=== PATIENT | female | born 1985 | race Caucasian/White ===

== ENCOUNTER 2017-02-04 09:20 | Outpatient (CLI) | payer MEDICAID ==
--- NOTE | 2017-02-04 10:09 | RADIOLOGY REPORT PS360 ---
CT HEAD W/O CONTRAST HISTORY: HEADACHE ORDERING PHYSICIAN: AMARI LAU PATIENT AGE: 32 years COMPARISON: None TECHNIQUE: Axial images obtained without contrast. Brain and bone windows reviewed. FINDINGS: No midline shift, mass effect, intracranial hemorrhage, hydrocephalus, or extra-axial fluid collection is evident. The calvarium has an unremarkable appearance. No mastoid effusion. The visualized paranasal sinuses are unremarkable. IMPRESSION: Negative CT head without contrast. No acute finding.
== END 2017-02-04 11:38 ==
LOC: ACC 09:20 → RAD 09:20
DX: R51 Headache (principal); I26.99 Other pulmonary embolism without acute cor pulmonale; Z79.01 Long term (current) use of anticoagulants; Z51.81 Encounter for therapeutic drug level monitoring
CPT/HCPCS: G0463

== ENCOUNTER 2017-04-23 08:58 | Emergency (ER) | payer MEDICAID ==
[~2017-04-23] VITALS: Ht 167.6 cm; Wt 90.7 kg
[2017-04-23] MEDS ORDERED: WARFARIN SOD5 M1 PO (09:06)
[2017-04-23] MEDS ORDERED: METOPROLOL SUCC50 M4 PO (09:06)
--- NOTE | 2017-04-23 09:08 | Urgent Treatment Center Report ---
History of Present Issue Date/Time Seen by Provider 04/23/17 0907 Visit Reason Pt arrived:Walked Presenting Problem:PT STATES PAIN TO LEFT SIDE THAT BEGAN LAST NIGHT A DULL PAIN. STATES PAIN HAS GOTTEN WORSE AND SIDE IS SENSITIVE. Location if Accident: Onset of symptoms date/time:04/22/17/ or onset unknown for:MEDICAL HX UNKNOWN Have you (or family members/close friends) recently traveled outside the [place]? N If Yes, where/when: Have you had exposure to infectious disease within the past month? TB? Other? Specify: c/o left lower abdominal pain. Started mild last night. Initially thought ovarian cyst and planned to call OBGYN in the morning. However, pain has progressed and now severe. "I don't think I can wait to get in to see them". Hx of ovarian cyst "but pretty sure they are always on my right". Pt hoping UTI "but never had a UTI hurt this bad and I have no other symptoms". Pain currently 6-7/10, constant, sharp, worse with sitting or laying, "took my breath away hitting a speed bump on the way here". Most comfortable standing. Hasn't taken or tried anything for symptoms. Pt is on coumadin for hx of PEs. Last INR 3 weeks ago. Reports "pretty leveled out" but not sure of number. Was due to repeated in 2 weeks but hasn't. Spoke to coumadin clinic yesterday and plans to go this week. Nausea with vomiting 2-3 days ago. Resolved after several hours. Contributed it to kids bringing something home from school. Denies N/V/D currently. No fever, dysuria, back pain. LMP 2 weeks ago. Hx of normal menstrual cycles. Denies any possibility of . Source patient Exam Limitations clinical condition (pain limited abdominal exam) ALLERGIES Coded Allergies: No Known Allergies (02/05/17) Home Medications Reported Medications Warfarin Sodium 5 MG PO DAILY #30 Metoprolol Succinate (Metoprolol Succinate XL) 50 MG PO DAILY #30 History Medical History General Angina: No [place]: No Hypertension? No Hyperlipidemia? No CHF? No COPD? No Asthma? No CVA? No Seizures? No Diabetes? No GB Disease: No MRSA? No TB? No Cancer? 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 denies: abnormal vaginal bleeding, vaginal discharge, frequency, hesitancy, hematuria. Musculoskeletal see HPI Skin denies lesions, denies lumps, denies rash Psychiatric/Neurological denies headache Physical Exam Vital Signs Vital Signs Date Time Temp Pulse Resp B/P Pulse O2 O2 Flow FiO2 Ox Delivery Rate 04/23 904 97.6 113 20 118/82 99 General Appearance mild distress, standing up, leaning against exam table Respiratory Status No: respiratory distress. Cardiovascular regular rate/rhythm, no peripheral edema, no murmur Gastrointestinal normal bowel sounds, soft, no organomegaly, no pulsatile mass, no guarding, no rebound, tenderness (LLQ) Back no CVA tenderness, gait abnormality (slow, guarded movement) Neurologic alert, oriented x 3 Mental status normal mood/affect Skin normal color, warm/dry Medical Decision Making LABS/Meds/Orders Pt receiving controlled substance in ED? No Results/Orders Laboratory Tests 04/23/17 0907: Urine Color YELLOW, Urine Appearance Clear, Urine pH 6.5, Ur Specific [place] 1.010, Urine Protein NEGATIVE, Urine Ketones NEGATIVE, Urine Blood NEGATIVE, Urine Nitrate NEGATIVE, Urine Bilirubin NEGATIVE, Urine Urobilinogen 0.2, Ur Leukocyte Esterase NEGATIVE, Urine Glucose NEGATIVE Orders Procedure Date/time Status [facility] URINE DIPSTICK 04/23 907 Complete Departure Departure Time of Disposition 918 Disposition Still a Patient Clinical Impression Primary Impression: Abdominal pain, left lower quadrant Condition STABLE Additional Instructions Given symptoms, exam and [facility] guidelines, pt is agreeable to transfer to ER for further evaluation and abdominal pain workup. Report called to GORAN Roman RN. at [phone]
--- NOTE | 2017-04-23 09:08 | Urgent Treatment Center Report ---
History of Present Issue Date/Time Seen by Provider 04/23/17 0907 Visit Reason Pt arrived:Walked Presenting Problem:PT STATES PAIN TO LEFT SIDE THAT BEGAN LAST NIGHT A DULL PAIN. STATES PAIN HAS GOTTEN WORSE AND SIDE IS SENSITIVE. Location if Accident: Onset of symptoms date/time:04/22/17/ or onset unknown for:MEDICAL HX UNKNOWN Have you (or family members/close friends) recently traveled outside the [place]? N If Yes, where/when: Have you had exposure to infectious disease within the past month? TB? Other? Specify: c/o left lower abdominal pain. Started mild last night. Initially thought ovarian cyst and planned to call OBGYN in the morning. However, pain has progressed and now severe. "I don't think I can wait to get in to see them". Hx of ovarian cyst "but pretty sure they are always on my right". Pt hoping UTI "but never had a UTI hurt this bad and I have no other symptoms". Pain currently 6-7/10, constant, sharp, worse with sitting or laying, "took my breath away hitting a speed bump on the way here". Most comfortable standing. Hasn't taken or tried anything for symptoms. Pt is on coumadin for hx of PEs. Last INR 3 weeks ago. Reports "pretty leveled out" but not sure of number. Was due to repeated in 2 weeks but hasn't. Spoke to coumadin clinic yesterday and plans to go this week. Nausea with vomiting 2-3 days ago. Resolved after several hours. Contributed it to kids bringing something home from school. Denies N/V/D currently. No fever, dysuria, back pain. LMP 2 weeks ago. Hx of normal menstrual cycles. Denies any possibility of . Source patient Exam Limitations clinical condition (pain limited abdominal exam) ALLERGIES Coded Allergies: No Known Allergies (02/05/17) Home Medications Reported Medications Warfarin Sodium 5 MG PO DAILY #30 Metoprolol Succinate (Metoprolol Succinate XL) 50 MG PO DAILY #30 History Medical History General Angina: No [place]: No Hypertension? No Hyperlipidemia? No CHF? No COPD? No Asthma? No CVA? No Seizures? No Diabetes? No GB Disease: No MRSA? No TB? No Cancer? 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 denies: abnormal vaginal bleeding, vaginal discharge, frequency, hesitancy, hematuria. Musculoskeletal see HPI Skin denies lesions, denies lumps, denies rash Psychiatric/Neurological denies headache Physical Exam Vital Signs Vital Signs Date Time Temp Pulse Resp B/P Pulse O2 O2 Flow FiO2 Ox Delivery Rate 04/23 904 97.6 113 20 118/82 99 General Appearance mild distress, standing up, leaning against exam table Respiratory Status No: respiratory distress. Cardiovascular regular rate/rhythm, no peripheral edema, no murmur Gastrointestinal normal bowel sounds, soft, no organomegaly, no pulsatile mass, no guarding, no rebound, tenderness (LLQ) Back no CVA tenderness, gait abnormality (slow, guarded movement) Neurologic alert, oriented x 3 Mental status normal mood/affect Skin normal color, warm/dry Medical Decision Making LABS/Meds/Orders Pt receiving controlled substance in ED? No Results/Orders Laboratory Tests 04/23/17 0907: Urine Color YELLOW, Urine Appearance Clear, Urine pH 6.5, Ur Specific [place] 1.010, Urine Protein NEGATIVE, Urine Ketones NEGATIVE, Urine Blood NEGATIVE, Urine Nitrate NEGATIVE, Urine Bilirubin NEGATIVE, Urine Urobilinogen 0.2, Ur Leukocyte Esterase NEGATIVE, Urine Glucose NEGATIVE Orders Procedure Date/time Status [facility] URINE DIPSTICK 04/23 907 Complete Departure Departure Time of Disposition 918 Disposition Still a Patient Clinical Impression Primary Impression: Abdominal pain, left lower quadrant Condition STABLE Additional Instructions Given symptoms, exam and [facility] guidelines, pt is agreeable to transfer to ER for further evaluation and abdominal pain workup. Report called to GORAN Roman RN. at [phone]
[2017-04-23 09:11] LABS: URINE BILIRUBIN - DIPSTICK NEGATIVE (NEG); URINE BLOOD NEGATIVE (NEG)
[2017-04-23 09:45] LABS: HEMOGLOBIN 11.4 g/dL (12.2-16.2); LYMPH # 1.5 K/mm3 (0.7-4.5); LYMPH % 21.7 % (10-50.0)
--- NOTE | 2017-04-23 09:46 | Emergency Room Report ---
History of Present Illness Time Seen by MD Grullon Presenting Problem in Triage Pt arrived:Walked Presenting Problem:PT REPORTS LLQ ABD PAIN THAT PT REPORTS IS SHARP AND NATURE AND WOKE HER UP LASTNIGHT. 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 N Clinical Suspician of Infection? N Mental Status: 1 - Regular (Normal Baseline) Sepsis Risk:Possible Sepsis Risk Have you (or family members/close friends) recently traveled outside the [place]? N If Yes, where/when: Have you had exposure to infectious disease within the past month? N TB? Other? Specify: Patient seen at [facility] for LLQ abdominal pain. UA sent and was negative. Transferred to ED for further evaluation. 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 No pain with ambulation or sitting; feels better to stand or move around. No fever. ALLERGIES Coded Allergies: No Known Allergies (02/05/17) Home Medications Reported Medications Warfarin Sodium 7.5 MG PO DAILY #30 TAB Metoprolol Succinate (Metoprolol Succinate XL) 50 MG PO DAILY #30 History Medical History General CAD? No Angina: No [place]: No Hypertension? Yes Hyperlipidemia? No CHF? No DVT? No PE? Yes COPD? No Asthma? No Anemia? No GERD? No Gastric ulcers? No GI Bleed? No Hernia? No Thyroid Problems? No Hypothyroidism? No CVA? No Seizures? No Diabetes? No Renal Insuffiency? No End Stage Renal Disease? No UTI? No Stones? No BPH? No GB Disease: No Nephritic Syndrome? No Asplenia? No Hepatitis? No Sickle Cell Disease? No Arthritis? No Migraines? No Cataracts? No Glaucoma? No MRSA? No HIV? No TB? No Anxiety? No Depression? No Cancer? No More? 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 Physical Exam Vital Signs Vital Signs Date Time Temp Pulse Resp B/P Pulse O2 O2 Flow FiO2 Ox Delivery Rate 04/23 1017 87 18 143/83 100 04/23 1009 18 04/23 0922 98.0 105 20 123/75 99 04/23 0904 97.6 113 20 118/82 99 General Appearance normal appearance, WD/WN, mild distress (standing, appears colicky) Eye Exam - bilateral eye normal exam, bilateral eye PERRL, bilateral eye EOMI Neck normal inspection, non-tender, supple, full range of motion Respiratory Status Yes: trachea midline, chest symmetrical, non tender chest. No: respiratory distress, tender on palpation, use of accessory muscles, pain on inspiration, pain on expiration, productive cough, non productive cough. Lung Sounds bilateral: normal breath sounds, lungs clear. Cardiovascular normal exam, regular rate/rhythm, no peripheral edema, no gallop, no JVD, no murmur, no rub, normal peripheral pulses Gastrointestinal normal bowel sounds, normal exam, soft, no organomegaly, no pulsatile mass, no guarding, no rebound, tenderness (mild tenderness LLQ no r/g) Back normal inspection, no CVA tenderness, bowel/bladder continent, gait normal, strt leg raising(L)-NML, strt leg raising(R)-NML Extremities normal range of motion Strength 5 Upper Ext (L), 5 Upper Ext (R), 5 Lower Ext (L), 5 Lower Ext (R) Neurologic alert, normal exam, no motor/sensory deficits Glascow Coma Scale Glascow Coma Scale Response Value EYE response: 4 Spontaneously 4 MOTOR response: 6 OBEYS 6 VERBAL response: 5 Oriented & Converses 5 Total 15 Skin intact, normal color, warm/dry Medical Decision Making LABS/Meds/Orders Pt receiving controlled substance in ED? Yes [place] was queried for this patient? Yes Reference #: [id number] Risks/benefits of using a controlled substance for treatment were discussed w/pt by me Results/Orders Laboratory Tests 04/23/17 0935: Sodium 140, Potassium 3.6, Chloride 103, Carbon Dioxide 29, BUN 6 L, Creatinine 0.6, Estimated Creat Clear 191, Estimated GFR (MDRD) 115, Glucose 97, Calcium 8.7, Total Bilirubin 0.4, AST 20, ALT 28, Alkaline Phosphatase 91, Total Protein 7.8, Albumin 3.7, Globulin 4.1 H, Albumin/Globulin Ratio 0.9 L, PT 10.1, INR 0.94, WBC 6.7, RBC 4.31, Hgb 11.4 L, Hct 35.1 L, MCV 81.5 L, RDW 13.6, Plt Count 297, MPV 7.7, Gran % 68.3, Gran # 4.6, Lymphocytes % 21.7, Monocytes % 8.1 , Eosinophils % 1.6, Basophils % 0.3, Lymphocytes # 1.5, Monocytes # 0.5, Eosinophils # 0.1, Basophils # 0.0, PUBS MCHC 32.6, MCH 26.6 L 04/23/17 0907: Urine Color YELLOW, Urine Appearance Clear, Urine pH 6.5, Ur Specific [place] 1.010, Urine Protein NEGATIVE, Urine Ketones NEGATIVE, Urine Blood NEGATIVE, Urine Nitrate NEGATIVE, Urine Bilirubin NEGATIVE, Urine Urobilinogen 0.2, Ur Leukocyte Esterase NEGATIVE, Urine Glucose NEGATIVE Current Medication Orders Sig/Shekhar Start time Last Medication Dose Route Stop Time Status Admin Morphine Sulfate 0 .STK-MED ONE 04/23 1009 DC .ROUTE Morphine Sulfate 4 MG ONCE ONE 04/23 1000 DC 04/23 IV 04/23 1001 1009 Sodium Chloride 10 ML PRN PRN 04/23 0930 AC IV 04/24 928 Orders Procedure Date/time Status DIET-NOTHING BY MOUTH 04/[address] ABD/PELVIS REQ 04/23 947 Complete IV SALINE LOCK 04/23 928 Active CULTURE, URINE 04/23 928 Active PROTHROMBIN TIME 04/23 928 Complete URINE 04/23 928 Complete CBC WITH AUTO DIFF 04/23 928 Complete CHEM 12 PROFILE 04/23 928 Complete [facility] URINE DIPSTICK 04/23 907 Complete XRAY/CT/US XRAY/CT/US CT abdomen, pelvis CT interpretation by reviewed by me (report reviewed) CT Results normal/NAD (normal kidney;sm fluid cds) Departure Departure Time of Disposition 1046 Disposition Still a Patient Clinical Impression Primary Impression: LLQ abdominal pain Condition STABLE Referrals ROOPA RIVERS (Family) Patient Instructions Acute Abdominal Pain Additional Instructions Rx Lortab: pump and dump breast milk if you have taken a narcotic within the last 24 hours. You have received morphine sulfate in the ER today. See your oncology physician assistant Dr. Pinon in [place] for further work up for possible ovarian cyst; see Roopa regarding subtherapeutic INR as well as abdominal pain; increase your Coumadin per your pharmacist's instructions and have level rechecked in about three to five days by Roopa/PCP. Discharge Counseling Counseled pt/family regarding diagnosis, test results, medications/RX, home care, follow up needs Prescriptions Current Visit Scripts HYDROCODONE/ACETAMINOPHEN (Lortab 10-325 (generic) Tablet) 0.5 TAB PO Q6HP PRN pain #10 TAB ED Critical Care Critical Care No at 2390
--- NOTE | 2017-04-23 09:46 | Emergency Room Report ---
History of Present Illness Time Seen by MD Grullon Presenting Problem in Triage Pt arrived:Walked Presenting Problem:PT REPORTS LLQ ABD PAIN THAT PT REPORTS IS SHARP AND NATURE AND WOKE HER UP LASTNIGHT. 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 N Clinical Suspician of Infection? N Mental Status: 1 - Regular (Normal Baseline) Sepsis Risk:Possible Sepsis Risk Have you (or family members/close friends) recently traveled outside the [place]? N If Yes, where/when: Have you had exposure to infectious disease within the past month? N TB? Other? Specify: Patient seen at [facility] for LLQ abdominal pain. UA sent and was negative. Transferred to ED for further evaluation. 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 No pain with ambulation or sitting; feels better to stand or move around. No fever. ALLERGIES Coded Allergies: No Known Allergies (02/05/17) Home Medications Reported Medications Warfarin Sodium 7.5 MG PO DAILY #30 TAB Metoprolol Succinate (Metoprolol Succinate XL) 50 MG PO DAILY #30 History Medical History General CAD? No Angina: No [place]: No Hypertension? Yes Hyperlipidemia? No CHF? No DVT? No PE? Yes COPD? No Asthma? No Anemia? No GERD? No Gastric ulcers? No GI Bleed? No Hernia? No Thyroid Problems? No Hypothyroidism? No CVA? No Seizures? No Diabetes? No Renal Insuffiency? No End Stage Renal Disease? No UTI? No Stones? No BPH? No GB Disease: No Nephritic Syndrome? No Asplenia? No Hepatitis? No Sickle Cell Disease? No Arthritis? No Migraines? No Cataracts? No Glaucoma? No MRSA? No HIV? No TB? No Anxiety? No Depression? No Cancer? No More? 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 Physical Exam Vital Signs Vital Signs Date Time Temp Pulse Resp B/P Pulse O2 O2 Flow FiO2 Ox Delivery Rate 04/23 1017 87 18 143/83 100 04/23 1009 18 04/23 0922 98.0 105 20 123/75 99 04/23 0904 97.6 113 20 118/82 99 General Appearance normal appearance, WD/WN, mild distress (standing, appears colicky) Eye Exam - bilateral eye normal exam, bilateral eye PERRL, bilateral eye EOMI Neck normal inspection, non-tender, supple, full range of motion Respiratory Status Yes: trachea midline, chest symmetrical, non tender chest. No: respiratory distress, tender on palpation, use of accessory muscles, pain on inspiration, pain on expiration, productive cough, non productive cough. Lung Sounds bilateral: normal breath sounds, lungs clear. Cardiovascular normal exam, regular rate/rhythm, no peripheral edema, no gallop, no JVD, no murmur, no rub, normal peripheral pulses Gastrointestinal normal bowel sounds, normal exam, soft, no organomegaly, no pulsatile mass, no guarding, no rebound, tenderness (mild tenderness LLQ no r/g) Back normal inspection, no CVA tenderness, bowel/bladder continent, gait normal, strt leg raising(L)-NML, strt leg raising(R)-NML Extremities normal range of motion Strength 5 Upper Ext (L), 5 Upper Ext (R), 5 Lower Ext (L), 5 Lower Ext (R) Neurologic alert, normal exam, no motor/sensory deficits Glascow Coma Scale Glascow Coma Scale Response Value EYE response: 4 Spontaneously 4 MOTOR response: 6 OBEYS 6 VERBAL response: 5 Oriented & Converses 5 Total 15 Skin intact, normal color, warm/dry Medical Decision Making LABS/Meds/Orders Pt receiving controlled substance in ED? Yes [place] was queried for this patient? Yes Reference #: [id number] Risks/benefits of using a controlled substance for treatment were discussed w/pt by me Results/Orders Laboratory Tests 04/23/17 0935: Sodium 140, Potassium 3.6, Chloride 103, Carbon Dioxide 29, BUN 6 L, Creatinine 0.6, Estimated Creat Clear 191, Estimated GFR (MDRD) 115, Glucose 97, Calcium 8.7, Total Bilirubin 0.4, AST 20, ALT 28, Alkaline Phosphatase 91, Total Protein 7.8, Albumin 3.7, Globulin 4.1 H, Albumin/Globulin Ratio 0.9 L, PT 10.1, INR 0.94, WBC 6.7, RBC 4.31, Hgb 11.4 L, Hct 35.1 L, MCV 81.5 L, RDW 13.6, Plt Count 297, MPV 7.7, Gran % 68.3, Gran # 4.6, Lymphocytes % 21.7, Monocytes % 8.1 , Eosinophils % 1.6, Basophils % 0.3, Lymphocytes # 1.5, Monocytes # 0.5, Eosinophils # 0.1, Basophils # 0.0, PUBS MCHC 32.6, MCH 26.6 L 04/23/17 0907: Urine Color YELLOW, Urine Appearance Clear, Urine pH 6.5, Ur Specific [place] 1.010, Urine Protein NEGATIVE, Urine Ketones NEGATIVE, Urine Blood NEGATIVE, Urine Nitrate NEGATIVE, Urine Bilirubin NEGATIVE, Urine Urobilinogen 0.2, Ur Leukocyte Esterase NEGATIVE, Urine Glucose NEGATIVE Current Medication Orders Sig/Shekhar Start time Last Medication Dose Route Stop Time Status Admin Morphine Sulfate 0 .STK-MED ONE 04/23 1009 DC .ROUTE Morphine Sulfate 4 MG ONCE ONE 04/23 1000 DC 04/23 IV 04/23 1001 1009 Sodium Chloride 10 ML PRN PRN 04/23 0930 AC IV 04/24 928 Orders Procedure Date/time Status DIET-NOTHING BY MOUTH 04/[address] ABD/PELVIS REQ 04/23 947 Complete IV SALINE LOCK 04/23 928 Active CULTURE, URINE 04/23 928 Active PROTHROMBIN TIME 04/23 928 Complete URINE 04/23 928 Complete CBC WITH AUTO DIFF 04/23 928 Complete CHEM 12 PROFILE 04/23 928 Complete [facility] URINE DIPSTICK 04/23 907 Complete XRAY/CT/US XRAY/CT/US CT abdomen, pelvis CT interpretation by reviewed by me (report reviewed) CT Results normal/NAD (normal kidney;sm fluid cds) Departure Departure Time of Disposition 1046 Disposition Still a Patient Clinical Impression Primary Impression: LLQ abdominal pain Condition STABLE Referrals ROOPA RIVERS (Family) Patient Instructions Acute Abdominal Pain Additional Instructions Rx Lortab: pump and dump breast milk if you have taken a narcotic within the last 24 hours. You have received morphine sulfate in the ER today. 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 Discharge Counseling Counseled pt/family regarding diagnosis, test results, medications/RX, home care, follow up needs Prescriptions Current Visit Scripts HYDROCODONE/ACETAMINOPHEN (Lortab 10-325 (generic) Tablet) 0.5 TAB PO Q6HP PRN pain #10 TAB ED Critical Care Critical Care No at [id number]
--- NOTE | 2017-04-23 10:31 | RADIOLOGY REPORT PS360 ---
CT ABD PELVIS W/O CONTRAST CLINICAL INDICATION: SHARP INTERMITTENT LLQ ABD PAIN ORDERING PHYSICIAN: Jennifer Rajput MD PATIENT AGE: 32 years COMPARISON: None TECHNIQUE: Axial images obtained with sagittal and coronal reformats. PROCEDURE: Oral Contrast: None IV Contrast: None . FINDINGS: Lower thorax: There is some minimal thickening of the pericardium along the left aspect anteriorly. Abdomen and pelvis: The liver, gallbladder, spleen, and adrenal glands and pancreas and kidneys have an unremarkable unenhanced CT appearance. No renal or ureteral calculi or hydronephrosis. Pelvis: Unremarkable appendix. Small amount fluid is present in the cul-de-sac. No evidence of diverticulitis. No intestinal obstruction or free air. 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 No acute bony anomalies. IMPRESSION: 1. Small amount fluid within cul-de-sac. 2. Otherwise negative CT abdomen pelvis
[2017-04-23] MEDS ORDERED: HYDROCODONE/ACE1 TA5 PO (10:47)
[2017-04-23 11:03] VITALS: BP 138/86
== END 2017-04-23 11:03 | disposition still patient (30) ==
LOC: UTC 08:58 → ER 09:05 → UTC 09:05 → ER 11:03
PROVIDERS: Emergency Medicine; Nurse Practitioner Family
DX: R10.32 Left lower quadrant pain (principal); Z79.01 Long term (current) use of anticoagulants; I10 Essential (primary) hypertension

== ENCOUNTER 2017-05-12 11:01 | Outpatient (CLI) | payer MEDICAID ==
[~2017-05-12 11:01] MED LIST: HYDROCODONE/ACE1 TA5 PO; METOPROLOL SUCC50 M4 PO; WARFARIN SOD5 M1 PO
== END 2017-05-12 11:40 ==
LOC: ACC 11:01
DX: I26.99 Other pulmonary embolism without acute cor pulmonale (principal); Z79.01 Long term (current) use of anticoagulants; Z51.81 Encounter for therapeutic drug level monitoring
CPT/HCPCS: G0463

== ENCOUNTER 2017-05-24 18:02 | Emergency (ER) | payer MEDICAID ==
[~2017-05-24] VITALS: Ht 167.6 cm; Wt 89.8 kg
[2017-05-24 18:58] LABS: URINE BILIRUBIN - DIPSTICK NEGATIVE (NEG); URINE BLOOD NEGATIVE (NEG)
[2017-05-24 18:58] LABS: HEMOGLOBIN 11.4 g/dL (12.2-16.2); LYMPH # 2.3 K/mm3 (0.7-4.5); LYMPH % 40.1 % (10-50.0)
[2017-05-24 19:00] LABS: URINE SQUAMOUS CELLS 20-50 #/hpf (0-5)
--- NOTE | 2017-05-24 19:13 | Emergency Room Report ---
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 N Clinical Suspician of Infection? N Mental Status: 1 - Regular (Normal Baseline) Sepsis Risk:Low Sepsis Risk Have you (or family members/close friends) recently traveled outside the [place]? N If Yes, where/when: Have you had exposure to infectious disease within the past month? N TB? Other? Specify: This is a 52 years old white female with a complicated past medical history. 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 She is currently on Coumadin 11.5 mg a day and follows up with the Coumadin clinic. For the past week she has been experiencing RIGHT lower rib pain that is worse with deep breathing and she has been placed on steroids by her primary care physician. Since yesterday she has been experiencing more short of breath and a LEFT upper chest pain. She denies having hemoptysis. She has history of palpitation and she is being followed by cardiology and the plan to do a monitor. She denies having hematemesis or coffee-ground emesis and melanotic stool or bleeding per rectum. She has no hematuria or dysuria she denies abdominal pain. Source patient, RN notes reviewed, old records Exam Limitations no limitations Home Medications Reported Medications Warfarin Sodium 7.5 MG PO DAILY #30 TAB Metoprolol Succinate (Metoprolol Succinate XL) 50 MG PO DAILY #30 (Corinne VALIENTE,[facility]) ALLERGIES Coded Allergies: No Known Allergies (02/05/17) (Inder Madrid MD) History Medical History General CAD? No Angina: No [place]: No Hypertension? Yes Hyperlipidemia? No CHF? No DVT? No PE? Yes COPD? No Asthma? No Anemia? No GERD? No Gastric ulcers? No GI Bleed? No Hernia? No Thyroid Problems? No Hypothyroidism? No CVA? No Seizures? No Diabetes? No Renal Insuffiency? No End Stage Renal Disease? No UTI? No Stones? No BPH? No GB Disease: No Nephritic Syndrome? No Asplenia? No Hepatitis? No Sickle Cell Disease? No Arthritis? No Migraines? No Cataracts? No Glaucoma? No MRSA? No HIV? No TB? No Anxiety? No Depression? No Cancer? No More? 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 Respiratory see HPI, shortness of breath Cardiovascular chest pain Gastrointestinal no symptoms reported Genitourinary no symptoms reported. Musculoskeletal no symptoms reported Skin no symptoms reported Psychiatric/Neurological no symptoms reported (Corinne VALIENTE,Klaus) Physical Exam Vital Signs Vital Signs Date Time Temp Pulse Resp B/P Pulse O2 O2 Flow FiO2 Ox Delivery Rate 05/24 2134 62 20 128/78 98 05/24 2045 72 18 128/84 100 05/24 1939 99.1 88 18 134/82 97 05/24 1825 99.1 88 18 140/72 97 General Appearance normal appearance, WD/WN Eye Exam - bilateral eye normal exam, bilateral eye PERRL, bilateral eye EOMI Ear, Nose, Throat hearing grossly normal, normal ENT inspection Neck normal inspection, non-tender, supple, full range of motion Respiratory Status Yes: trachea midline, chest symmetrical, non tender chest. No: respiratory distress. Lung Sounds bilateral: normal breath sounds, lungs clear. 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 No Results/Orders Laboratory Tests 05/24/17 1840: Urine Color YELLOW, Urine Appearance SL CLOUDY, Urine pH 6.0, Ur Specific [place] >= 1.030, Urine Protein NEGATIVE, Urine Ketones NEGATIVE, Urine Blood NEGATIVE, Urine Nitrate NEGATIVE, Urine Bilirubin NEGATIVE, Urine Urobilinogen 0.2, Ur Leukocyte Esterase TRACE H, Urine WBC 3-5, Ur Squamous Epith Cells 20- 50, Urine Glucose NEGATIVE 05/24/171837: Creatine Kinase 80, CK-MB (CK-2) Rel Index 0.6, CK and CKMB Interp < 0.5, Troponin I < 0.02, D-Dimer < 100 05/24/171837: Sodium 140, Potassium 3.4 L, Chloride 105, Carbon Dioxide 27, BUN 10, Creatinine 0.8, Estimated Creat Clear 142, Estimated GFR (MDRD) 83, Glucose 92, Calcium 8.6, Total Bilirubin 0.2, AST 13 L, ALT 25, Alkaline Phosphatase 76, Total Protein 7.4, Albumin 3.6, Globulin 3.8 H, Albumin/Globulin Ratio 0.9 L, PT 29.5 H, INR 2.70 H, APTT 36.6 H, WBC 5.8, RBC 4.26, Hgb 11.4 L, Hct 34.9 L, MCV 82.0 L, RDW 13.9, Plt Count 255, MPV 7.6, Gran % 50.2, Gran # 2.9, Lymphocytes % 40.1, Monocytes % 6.6, Eosinophils % 2.8, Basophils % 0.4, Lymphocytes # 2.3, Monocytes # 0.4, Eosinophils # 0.2, Basophils # 0.0, PUBS MCHC 32.5, MCH 26.7 L Current Medication Orders Sig/Shekhar Start time Last Medication Dose Route Stop Time Status Admin Iopamidol 75 ML ONCE ONE 05/24 2030 UNV 05/24 IV 05/24 Sodium Chloride 10 ML PRN PRN 05/24 2030 UNV 05/24 IV 05/24 Morphine Sulfate 0 .STK-MED ONE 05/24 1931 DC .ROUTE Sodium Chloride 1,000 ML .STK-MED ONE 05/24 1931 DC IV Morphine Sulfate 2 MG [id number] PRN 05/24 1930 DC IV Morphine Sulfate 2 MG ONCE ONE 05/24 1930 CAN IV 05/24 1931 Sodium Chloride 1,000 ML .Q1H1M 05/24 1930 DC 05/24 IV 05/24 Sodium Chloride 10 ML PRN PRN 05/24 1930 AC IV 05/25 1919 Sodium Chloride 10 ML PRN PRN 05/24 184 AC IV 05/25 1833 Orders Procedure Date/time Status DIET-NOTHING BY MOUTH 05/25 B Active CTA-CHEST 05/[address] CHEST W/PE PROTOCOL REQ 05/24 2008 Complete PARTIAL THROMBOPLASTIN TIME 05/24 1910 Complete PROTHROMBIN TIME 05/24 1910 Complete D-DIMER 05/24 1902 Complete CARDIAC ENZYMES 05/24 1902 Complete ELECTROCARDIOGRAM REQUEST 05/24 1834 Active CHEST(2 VIEWS-NOT PORTABLE) 05/24 183 Active IV SALINE LOCK 05/24 1834 Active URINALYSIS/COMPLETE 05/24 1834 Complete URINE 05/24 1834 Complete CBC WITH AUTO DIFF 05/24 1834 Complete CHEM 12 PROFILE 05/24 1834 Complete 12 LEAD EKG-SAMANHTA (INITIAL) 05/24 UNK Active CM/EKG CM/EKG EKG normal sinus rhythm 91/m baseline artifact no acute findings (Klaus Sun MD) XRAY/CT/US XRAY/CT/US CT chest CT interpretation by discussed w/radiologist Time results known: 2133 CT Results normal/NAD (Inder Madrid MD) Departure Departure Time of Disposition 1913 Clinical Impression Primary Impression: Anticoagulated on Coumadin Condition STABLE Referrals JEREMIAH RIVERS Additional Instructions After obtaining labs and plan chest x-ray I discussed with the patient her options and she agreed to have a CTA to exclude other chest abnormality. Her care will be transferred to Dr. Madrid who is her primary care physician to discuss the CT results and disposition. Discharge Counseling Counseled pt/family regarding diagnosis, test results ED Critical Care Critical Care No If Critical Care minutes are documented, the time involved in the performance of seperately reportable procedures was not counted toward critical care time documented. I directly delivered medical care to this critically ill and/or injured patient. Timely evaluation and treatment was necessary to address the significant organ system(s) dysfunction present in this patient. (Klaus Sun MD) Departure Disposition DC Home or Self Care(routine) (Inder Madrid MD) at 2004 at 2136
--- NOTE | 2017-05-24 19:13 | Emergency Room Report ---
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 N Clinical Suspician of Infection? N Mental Status: 1 - Regular (Normal Baseline) Sepsis Risk:Low Sepsis Risk Have you (or family members/close friends) recently traveled outside the [place]? N If Yes, where/when: Have you had exposure to infectious disease within the past month? N TB? Other? Specify: This is a 52 years old white female with a complicated past medical history. 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 She is currently on Coumadin 11.5 mg a day and follows up with the Coumadin clinic. For the past week she has been experiencing RIGHT lower rib pain that is worse with deep breathing and she has been placed on steroids by her primary care physician. Since yesterday she has been experiencing more short of breath and a LEFT upper chest pain. She denies having hemoptysis. She has history of palpitation and she is being followed by cardiology and the plan to do a monitor. She denies having hematemesis or coffee-ground emesis and melanotic stool or bleeding per rectum. She has no hematuria or dysuria she denies abdominal pain. Source patient, RN notes reviewed, old records Exam Limitations no limitations Home Medications Reported Medications Warfarin Sodium 7.5 MG PO DAILY #30 TAB Metoprolol Succinate (Metoprolol Succinate XL) 50 MG PO DAILY #30 (Corinne VALIENTE,[facility]) ALLERGIES Coded Allergies: No Known Allergies (02/05/17) (Inder Madrid MD) History Medical History General CAD? No Angina: No [place]: No Hypertension? Yes Hyperlipidemia? No CHF? No DVT? No PE? Yes COPD? No Asthma? No Anemia? No GERD? No Gastric ulcers? No GI Bleed? No Hernia? No Thyroid Problems? No Hypothyroidism? No CVA? No Seizures? No Diabetes? No Renal Insuffiency? No End Stage Renal Disease? No UTI? No Stones? No BPH? No GB Disease: No Nephritic Syndrome? No Asplenia? No Hepatitis? No Sickle Cell Disease? No Arthritis? No Migraines? No Cataracts? No Glaucoma? No MRSA? No HIV? No TB? No Anxiety? No Depression? No Cancer? No More? 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 Respiratory see HPI, shortness of breath Cardiovascular chest pain Gastrointestinal no symptoms reported Genitourinary no symptoms reported. Musculoskeletal no symptoms reported Skin no symptoms reported Psychiatric/Neurological no symptoms reported (Corinne VALIENTE,Klaus) Physical Exam Vital Signs Vital Signs Date Time Temp Pulse Resp B/P Pulse O2 O2 Flow FiO2 Ox Delivery Rate 05/24 2134 62 20 128/78 98 05/24 2045 72 18 128/84 100 05/24 1939 99.1 88 18 134/82 97 05/24 1825 99.1 88 18 140/72 97 General Appearance normal appearance, WD/WN Eye Exam - bilateral eye normal exam, bilateral eye PERRL, bilateral eye EOMI Ear, Nose, Throat hearing grossly normal, normal ENT inspection Neck normal inspection, non-tender, supple, full range of motion Respiratory Status Yes: trachea midline, chest symmetrical, non tender chest. No: respiratory distress. Lung Sounds bilateral: normal breath sounds, lungs clear. 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 No Results/Orders Laboratory Tests 05/24/17 1840: Urine Color YELLOW, Urine Appearance SL CLOUDY, Urine pH 6.0, Ur Specific [place] >= 1.030, Urine Protein NEGATIVE, Urine Ketones NEGATIVE, Urine Blood NEGATIVE, Urine Nitrate NEGATIVE, Urine Bilirubin NEGATIVE, Urine Urobilinogen 0.2, Ur Leukocyte Esterase TRACE H, Urine WBC 3-5, Ur Squamous Epith Cells 20- 50, Urine Glucose NEGATIVE 05/24/171837: Creatine Kinase 80, CK-MB (CK-2) Rel Index 0.6, CK and CKMB Interp < 0.5, Troponin I < 0.02, D-Dimer < 100 05/24/171837: Sodium 140, Potassium 3.4 L, Chloride 105, Carbon Dioxide 27, BUN 10, Creatinine 0.8, Estimated Creat Clear 142, Estimated GFR (MDRD) 83, Glucose 92, Calcium 8.6, Total Bilirubin 0.2, AST 13 L, ALT 25, Alkaline Phosphatase 76, Total Protein 7.4, Albumin 3.6, Globulin 3.8 H, Albumin/Globulin Ratio 0.9 L, PT 29.5 H, INR 2.70 H, APTT 36.6 H, WBC 5.8, RBC 4.26, Hgb 11.4 L, Hct 34.9 L, MCV 82.0 L, RDW 13.9, Plt Count 255, MPV 7.6, Gran % 50.2, Gran # 2.9, Lymphocytes % 40.1, Monocytes % 6.6, Eosinophils % 2.8, Basophils % 0.4, Lymphocytes # 2.3, Monocytes # 0.4, Eosinophils # 0.2, Basophils # 0.0, PUBS MCHC 32.5, MCH 26.7 L Current Medication Orders Sig/Shekhar Start time Last Medication Dose Route Stop Time Status Admin Iopamidol 75 ML ONCE ONE 05/24 2030 UNV 05/24 IV 05/24 Sodium Chloride 10 ML PRN PRN 05/24 2030 UNV 05/24 IV 05/24 Morphine Sulfate 0 .STK-MED ONE 05/24 1931 DC .ROUTE Sodium Chloride 1,000 ML .STK-MED ONE 05/24 1931 DC IV Morphine Sulfate 2 MG [id number] PRN 05/24 1930 DC IV Morphine Sulfate 2 MG ONCE ONE 05/24 1930 CAN IV 05/24 1931 Sodium Chloride 1,000 ML .Q1H1M 05/24 1930 DC 05/24 IV 05/24 Sodium Chloride 10 ML PRN PRN 05/24 1930 AC IV 05/25 1919 Sodium Chloride 10 ML PRN PRN 05/24 184 AC IV 05/25 1833 Orders Procedure Date/time Status DIET-NOTHING BY MOUTH 05/25 B Active CTA-CHEST 05/[address] CHEST W/PE PROTOCOL REQ 05/24 2008 Complete PARTIAL THROMBOPLASTIN TIME 05/24 1910 Complete PROTHROMBIN TIME 05/24 1910 Complete D-DIMER 05/24 1902 Complete CARDIAC ENZYMES 05/24 1902 Complete ELECTROCARDIOGRAM REQUEST 05/24 1834 Active CHEST(2 VIEWS-NOT PORTABLE) 05/24 183 Active IV SALINE LOCK 05/24 1834 Active URINALYSIS/COMPLETE 05/24 1834 Complete URINE 05/24 1834 Complete CBC WITH AUTO DIFF 05/24 1834 Complete CHEM 12 PROFILE 05/24 1834 Complete 12 LEAD EKG-SAMANTHA (INITIAL) 05/24 UNK Active CM/EKG CM/EKG EKG normal sinus rhythm 91/m baseline artifact no acute findings (Klaus Sun MD) XRAY/CT/US XRAY/CT/US CT chest CT interpretation by discussed w/radiologist Time results known: 2133 CT Results normal/NAD (Inder Madrid MD) Departure Departure Time of Disposition 1913 Clinical Impression Primary Impression: Anticoagulated on Coumadin Condition STABLE Referrals JEREMIAH RIVERS Additional Instructions After obtaining labs and plan chest x-ray I discussed with the patient her options and she agreed to have a CTA to exclude other chest abnormality. Her care will be transferred to Dr. Madrid who is her primary care physician to discuss the CT results and disposition. Discharge Counseling Counseled pt/family regarding diagnosis, test results ED Critical Care Critical Care No If Critical Care minutes are documented, the time involved in the performance of seperately reportable procedures was not counted toward critical care time documented. I directly delivered medical care to this critically ill and/or injured patient. Timely evaluation and treatment was necessary to address the significant organ system(s) dysfunction present in this patient. (Klaus uSn MD) Departure Disposition DC Home or Self Care(routine) (Inder Madrid MD) at 2004 at 2136
[2017-05-24 21:42] VITALS: BP 128/78
--- NOTE | 2017-05-25 06:20 | RADIOLOGY REPORT PS360 ---
CHEST(2 VIEWS-NOT PORTABLE) HISTORY: PAIN ORDERING PHYSICIAN: Klaus Sun MD PATIENT AGE: 32 years COMPARISON: None available FINDINGS: The cardiomediastinal silhouette and pulmonary vascularity are within normal limits. Patchy density is present in the left lower lobe laterally and may be due to an area infiltrate. The remaining lungs are clear. Mild thoracic curvature convex right. No acute bony anomalies. IMPRESSION: Patchy area of infiltrate in the left lower lobe
--- NOTE | 2017-05-25 07:11 | RADIOLOGY REPORT PS360 ---
CTA-CHEST HISTORY: Chest pain, history of pulmonary embolus CHEST PAIN ORDERING PHYSICIAN: Inder Madrid MD PATIENT AGE: 32 years TECHNIQUE: Helical acquisition obtained following the bolus administration of 60 mL of Isovue 370 followed by a saline bolus. Axial, sagittal, and coronal reformatted images are generated and reviewed. COMPARISON: None FINDINGS: PULMONARY ARTERIES:No pulmonary embolus evident. AORTA:No acute finding. No thoracic aortic aneurysm or dissection evident LUNGS:Bilateral mild dependent subsegmental atelectasis in the lung bases and in the lingula. PLEURAL SPACES:No significant effusion. No evidence of pneumothorax. HEART:Unremarkable. Normal heart size. No significant pericardial effusion. MEDIASTINAL AND HILAR STRUCTURES:No mediastinal or hilar mass evident. No dominant adenopathy. BONY STRUCTURES:Mild dextroscoliosis, no acute finding. LYMPH NODES:No enlarged lymph nodes evident UPPER ABDOMEN:Unremarkable IMPRESSION: 1. No evidence of acute pulmonary embolus or aortic aneurysm. 2. Mild scattered atelectatic changes
== END 2017-05-24 21:43 | disposition home or self-care (01) ==
LOC: ER 18:02
PROVIDERS: Emergency Medicine
DX: D68.9 Coagulation defect, unspecified (principal); Z86.711 Personal history of pulmonary embolism; I10 Essential (primary) hypertension
CPT/HCPCS: Q9967